=== PATIENT | male | born 1985 | race Caucasian/White ===

== ENCOUNTER 2022-01-16 12:21 | Emergency (ER) | payer OTHER ==
[~2022-01-16] VITALS: Ht 180.3 cm; Wt 108.9 kg
[~2022-01-16 12:21] MED LIST: ACETAMINOPHEN-1 EAC1 PO; ALLEGRA-D 24 H1 EACH PO; AMOXICILLIN500 MG PO; AZITHROMYCIN250 MG PO; CEPHALEXIN500 MG PO; CLONIDINE1 EAC1 TD; GUAIFENESIN-CO118 ML PO; KEFLEX500 MG PO; NORCO 5-325 TA1 EACH PO
== END 2022-01-16 13:40 | disposition home or self-care (01) ==
LOC: ED 12:21
DX: J02.9 Acute pharyngitis, unspecified (principal); F17.200 Nicotine dependence, unspecified, uncomplicated; Z20.822 Contact with and (suspected) exposure to COVID-19
CPT/HCPCS: 87081; 87502; 87880; 99283; C9803; U0003

== ENCOUNTER 2023-09-03 12:06 | Emergency (ER) | payer OTHER ==
[~2023-09-03] VITALS: Ht 180.3 cm; Wt 114.6 kg
[2023-09-03 14:01] VITALS: BP 109/75
== END 2023-09-03 14:01 | disposition short-term general hospital (02) ==
LOC: ED 12:06
DX: H65.93 Unspecified nonsuppurative otitis media, bilateral (principal); F17.200 Nicotine dependence, unspecified, uncomplicated
CPT/HCPCS: 99284

== ENCOUNTER 2024-07-14 07:49 | Emergency (ER) | payer OTHER ==
[~2024-07-14] VITALS: Ht 180.3 cm; Wt 109.3 kg
[~2024-07-14 07:49] MED LIST changes: +AMOX TR-K CLV1 EAC1 PO; +OCUFLOX5 ML OPTH
[2024-07-14] MEDS ORDERED: AMOXICILLIN 500 MG CAP PO ONE (08:15)
[2024-07-14] MEDS ORDERED: AMOXICILLIN500 MG PO (08:19)
[2024-07-14 08:21] VITALS: BP 128/83
== END 2024-07-14 08:21 | disposition home or self-care (01) ==
LOC: ED 07:49
DX: J40 Bronchitis, not specified as acute or chronic (principal); J32.9 Chronic sinusitis, unspecified; F17.200 Nicotine dependence, unspecified, uncomplicated
CPT/HCPCS: 99283

== ENCOUNTER 2025-05-19 11:31 | Emergency (ER) | payer OTHER ==
[~2025-05-19] VITALS: Ht 180.3 cm; Wt 108.9 kg
[2025-05-19 12:23] LABS: CORONAVIRUS COVID-19 AG NEGATIVE (NEGATIVE)
[2025-05-19] MEDS ORDERED: ZITHROMAX250 MG PO (12:27)
[2025-05-19 12:33] VITALS: BP 122/93
== END 2025-05-19 12:33 | disposition home or self-care (01) ==
LOC: ED 11:31
PROVIDERS: Emergency Medicine
DX: J40 Bronchitis, not specified as acute or chronic (principal); J06.9 Acute upper respiratory infection, unspecified; F17.200 Nicotine dependence, unspecified, uncomplicated
CPT/HCPCS: 36415; 71045; 99283-25